=== PATIENT | male | born 1985 | race Caucasian/White ===

== ENCOUNTER 2024-01-13 07:35 | Emergency (ER) | payer MEDICAID ==
[~2024-01-13] VITALS: Ht 182.9 cm; Wt 88.0 kg
[2024-01-13 07:57] VITALS: BP 107/64; PULSE 77; RESP 16; TEMP 98.4; O2SAT 98
[2024-01-13] MEDS ORDERED: AMOX-580 PO (07:59)
== END 2024-01-13 08:03 | disposition home or self-care (01) ==
LOC: ER 07:36
DX: K08.89 Other specified disorders of teeth and supporting structures (principal); Z79.899 Other long term (current) drug therapy
CPT/HCPCS: 99283

== ENCOUNTER 2024-03-30 13:14 | Emergency (ER) | payer MEDICAID ==
[~2024-03-30] VITALS: Ht 182.9 cm; Wt 87.9 kg
[2024-03-30] MEDS: LIDOcaine 2% Viscous 15ml cup MM ONE (14:56)
[2024-03-30] MEDS ORDERED: LIDO15SO9 PO (15:12)
[2024-03-30] MEDS: acetaminophen 325mg tablet PO ONE (15:12)
[2024-03-30 15:18] VITALS: BP 118/64; PULSE 77; RESP 16; TEMP 98.9; O2SAT 98
== END 2024-03-30 15:20 | disposition home or self-care (01) ==
LOC: ER 13:15
DX: S90.912A Unspecified superficial injury of left ankle, initial encounter (principal); J02.9 Acute pharyngitis, unspecified; Z79.899 Other long term (current) drug therapy; X58.XXXA Exposure to other specified factors, initial encounter; Y93.89 Activity, other specified; Y92.89 Other specified places as the place of occurrence of the external cause; Y99.8 Other external cause status
CPT/HCPCS: 99283; A6449

== ENCOUNTER 2024-12-27 18:10 | Emergency (ER) | payer MEDICAID ==
[~2024-12-27] VITALS: Ht 182.9 cm; Wt 86.4 kg
[~2024-12-27 18:10] MED LIST: LIDO15SO9 PO
[2024-12-27 18:25] VITALS: BP 122/74; PULSE 93; RESP 16; TEMP 97; O2SAT 98
== END 2024-12-27 21:15 | disposition left against medical advice (07) ==
LOC: ER 18:11
DX: R11.10 Vomiting, unspecified (principal); R19.7 Diarrhea, unspecified; Z53.21 Procedure and treatment not carried out due to patient leaving prior to being seen by health care provider
CPT/HCPCS: J7030

== ENCOUNTER → 2025-01-01 | Emergency (ER) | payer MEDICAID ==
[~2025-01-01] VITALS: Ht 190.5 cm; Wt 86.0 kg
[~2025-01-01] MED LIST changes: +AMOX-580 PO; +HYDR-3973 PO; +IBUP-1984 PO
[2025-01-01 17:48] VITALS: BP 138/82; PULSE 88; RESP 18; TEMP 97.8; O2SAT 98
== END | disposition left against medical advice (07) ==
LOC: ER 17:44
DX: S05.31XA Ocular laceration without prolapse or loss of intraocular tissue, right eye, initial encounter (principal); H50.631 Inferior rectus muscle entrapment, right eye; Z79.899 Other long term (current) drug therapy; Z59.00 Homelessness unspecified; X58.XXXA Exposure to other specified factors, initial encounter; Y93.89 Activity, other specified; Y92.89 Other specified places as the place of occurrence of the external cause; Y99.8 Other external cause status
CPT/HCPCS: 70450; 70486; 99284; A6446

== ENCOUNTER 2025-01-02 08:02 | Emergency (ER) | payer MEDICAID ==
[~2025-01-02] VITALS: Ht 182.9 cm; Wt 90.8 kg
[~2025-01-02 08:02] MED LIST changes: -AMOX-580 PO; -HYDR-3973 PO; -IBUP-1984 PO
[2025-01-02] MEDS: acetaminophen 325mg tablet PO ONE (08:44)
[2025-01-02] MEDS: amox tr/potassium clavulanate 875/125mg TAB PO ONE (08:46)
[2025-01-02] MEDS: LIDOcaine 1% W/epiNEPHrine 1:100,000 20ml vial SQ ONE (11:42)
[2025-01-02] MEDS ORDERED: AMOX-580 PO (12:39)
[2025-01-02] MEDS ORDERED: HYDR-3973 PO (12:39)
[2025-01-02] MEDS ORDERED: IBUP-1984 PO (12:39)
[2025-01-02] MEDS: bacitracin ointment unit dose packet TP ONE (12:57)
[2025-01-02 13:03] VITALS: BP 128/73; PULSE 75; RESP 16; TEMP 98.2; O2SAT 99
== END 2025-01-02 13:10 | disposition home or self-care (01) ==
LOC: ER 08:03
DX: S06.0XAA Concussion with loss of consciousness status unknown, initial encounter (principal); S02.31XA Fracture of orbital floor, right side, initial encounter for closed fracture; S01.81XA Laceration without foreign body of other part of head, initial encounter; F17.200 Nicotine dependence, unspecified, uncomplicated; X58.XXXA Exposure to other specified factors, initial encounter; Y93.89 Activity, other specified; Y92.89 Other specified places as the place of occurrence of the external cause; Y99.8 Other external cause status
CPT/HCPCS: 12013; 99285

== ENCOUNTER 2025-01-09 10:03 | Emergency (ER) | payer MEDICAID ==
[~2025-01-09] VITALS: Ht 182.9 cm; Wt 90.8 kg
[~2025-01-09 10:03] MED LIST changes: +AMOX-580 PO; +HYDR-3973 PO; +IBUP-1984 PO
[2025-01-09 10:13] VITALS: BP 115/70; PULSE 57; RESP 16; O2SAT 97
[2025-01-09 12:49] VITALS: TEMP 98
== END 2025-01-09 12:51 | disposition home or self-care (01) ==
LOC: ER 10:03
DX: S01.81XD Laceration without foreign body of other part of head, subsequent encounter (principal); Z79.899 Other long term (current) drug therapy; W19.XXXD Unspecified fall, subsequent encounter
CPT/HCPCS: 99281